=== PATIENT | female | born 2000 | race Hispanic/Latino ===

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

== ENCOUNTER 2022-01-13 09:57 | Emergency (ER) | payer OTHER, MEDICAID ==
[~2022-01-13] VITALS: Ht 160 cm; Wt 74.4 kg
[2022-01-13] MEDS ORDERED: ACETAMINOPHEN 500 MG TABLET PO SCH (10:30)
[2022-01-13] MEDS ORDERED: TETANUS/DIPHTHERIA TOXOID [ADULT] 0.5 ML VIAL IM SCH (10:30)
[2022-01-13] MEDS ORDERED: CEPH500B PO (12:23)
[2022-01-13 12:47] VITALS: BP 127/85
[2022-01-13] MEDS ORDERED: BACITRACIN 28.4 GM OINT TP ONE (13:00)
== END 2022-01-13 12:48 | disposition home or self-care (01) ==
LOC: EDH 09:57
DX: S81.851A Open bite, right lower leg, initial encounter (principal); W54.0XXA Bitten by dog, initial encounter; Y93.89 Activity, other specified; Y92.89 Other specified places as the place of occurrence of the external cause; Y99.8 Other external cause status
CPT/HCPCS: 73590; 81025; 90471; 90714

== ENCOUNTER 2024-07-23 11:10 | Observation (INO) | payer MEDICAID, OTHER ==
[~2024-07-23] VITALS: Ht 160 cm; Wt 82.1 kg
[~2024-07-23 11:10] MED LIST changes: +CEPH500B PO
[2024-07-23 11:20] VITALS: BP 120/67; PULSE 95; RESP 18
[2024-07-23 12:01] LABS: APPEARANCE,URINE CLEAR (CLEAR); BILIRUBIN,URINE NEGATIVE (NEGATIVE); COLOR,URINE LIGHT-YELLOW (YELLOW); GLUCOSE, URINE (UA) NEGATIVE (NEGATIVE); KETONES,URINE NEGATIVE (NEGATIVE); LEUKOCYTE ESTERASE ,URINE 75 Leu/uL (NEGATIVE); NITRATE,URINE NEGATIVE (NEGATIVE); OCCULT BLOOD,URINE NEGATIVE (NEGATIVE); PH,URINE 6.5 (5.0-8.0); PROTEIN,URINE NEGATIVE (NEGATIVE); UROBILINOGEN,URINE 0.2 mg/dL (0.2-1.0)
[2024-07-23 12:09] LABS: AMPHET/METH SCREEN,URINE NEGATIVE (NEGATIVE); BARBITURATE SCREEN, URINE NEGATIVE (NEGATIVE); BENZODIAZEPINES SCREEN,URINE NEGATIVE (NEGATIVE); CANNABINOID SCREEN,URINE NEGATIVE (NEGATIVE); COCAINE SCREEN,URINE NEGATIVE (NEGATIVE); OPIATE SCREEN,URINE NEGATIVE (NEGATIVE); PHENCYCLIDINE SCREEN,URINE NEGATIVE (NEGATIVE)
[2024-07-23 12:13] LABS: ADD UA MICROSCOPIC YES
[2024-07-23 12:24] LABS: BACTERIA,URINE RARE /HPF (None Seen); MUCUS,URINE RARE LPF (None Seen); RBC,URINE 0-1 /HPF (0-1); SQUAMOUS EPITHELIAL CELL,UR FEW /HPF (0-2)
[2024-07-23] MEDS: AZITHROMYCIN 250 MG TABLET PO ONE (12:46)
== END 2024-07-23 12:55 | disposition home or self-care (01) ==
LOC: EDH 11:10 → LDH 12:09
PROVIDERS: ADMIT Obstetrics & Gynecology; ATTEND Obstetrics & Gynecology
DX: O36.8130 Decreased fetal movements, third trimester, not applicable or unspecified (principal); Z3A.37 37 weeks gestation of pregnancy; Z79.899 Other long term (current) drug therapy
CPT/HCPCS: 76819; 80305; 87086; 81001; G0379; G0378

== ENCOUNTER 2024-08-03 17:09 | Inpatient (IN) | payer MEDICAID ==
[~2024-08-03] VITALS: Ht 160 cm; Wt 81.6 kg
[2024-08-03] MEDS ORDERED: LACTATED RINGERS 500 ML 500 ML IV PRN (17:30)
[2024-08-03] MEDS ORDERED: NALoxone HCL 0.4 MG/1 ML ML IV PRN (17:30)
[2024-08-03] MEDS ORDERED: MEPERIDINE-PF 25 MG/ML SYG IVP PRN (17:30)
[2024-08-03] MEDS ORDERED: ePHEDrine SULFate 50 MG/ML AMPULE IVP PRN (17:30)
[2024-08-03] MEDS ORDERED: PROMETHAZINE HCL 25 MG/ML 1ML AMPULE IM PRN (17:30)
[2024-08-03] MEDS: LACTATED RINGERS 1000ML 1,000 ML IV PRN (17:55)
[2024-08-03 18:00] LABS: HEMATOCRIT 34.3 % (36-48); MEAN CORPUSCULAR HEMOGLOBIN 24.9 pg (27.0-33.0); MEAN CORPUSCULAR HGB CONC 32.4 g/dL (32.0-36.0); MEAN CORPUSCULAR VOLUME 77.1 fL (79-99); PLATELET COUNT (AUTO) 221 K/uL (130-400); RED BLOOD CELL COUNT(AUTO) 4.45 MIL/uL (4.00-5.50); RED CELL DISTRIBUTION WIDTH 13.7 % (11.0-15.5)
[2024-08-03 18:22] LABS: APPEARANCE,URINE CLOUDY (CLEAR); BILIRUBIN,URINE NEGATIVE (NEGATIVE); COLOR,URINE YELLOW (YELLOW); GLUCOSE, URINE (UA) NEGATIVE (NEGATIVE); KETONES,URINE 20 mg/dL (NEGATIVE); LEUKOCYTE ESTERASE ,URINE 75 Leu/uL (NEGATIVE); NITRATE,URINE NEGATIVE (NEGATIVE); OCCULT BLOOD,URINE NEGATIVE (NEGATIVE); PH,URINE 6.5 (5.0-8.0); PROTEIN,URINE NEGATIVE (NEGATIVE); UROBILINOGEN,URINE 0.2 mg/dL (0.2-1.0)
[2024-08-03 18:27] LABS: ADD UA MICROSCOPIC YES
[2024-08-03 18:31] LABS: BACTERIA,URINE RARE /HPF (None Seen); MUCUS,URINE RARE LPF (None Seen); RBC,URINE 0-1 /HPF (0-1); SQUAMOUS EPITHELIAL CELL,UR MOD /HPF (0-2)
[2024-08-03] MEDS: AMPICILLIN 2GM+NS 100ML 100 ML IV SCH (18:36)
[2024-08-03] MEDS: DINOPROSTONE 10 MG VAGINAL SUPP VG ONE (18:36)
[2024-08-03] MEDS: AMPICILLIN 1GM+NS 50ML 50 ML IV SCH (22:38)
[2024-08-04] MEDS ORDERED: MISOPROSTOL 200 MCG TABLET ONE (01:38)
[2024-08-04] MEDS ORDERED: DIPH,PERTUSS(ACELL),TET VAC/PF 0.5 ML VIAL IM PRN (02:30)
[2024-08-04] MEDS ORDERED: LANOLIN 30GM OINTMENT TP PRN (02:30)
[2024-08-04] MEDS ORDERED: MEASLES/MUMPS/RUBELLA VACCINE, LIVE 0.5 ML/VIAL SQ PRN (02:30)
[2024-08-04] MEDS ORDERED: acetaMINOPHEN WITH coDEINE 1 TAB TAB PO PRN (02:30)
[2024-08-04] MEDS ORDERED: acetaMINOPHEN 325 MG TAB PO PRN (02:30)
[2024-08-04] MEDS: LIDOCAINE HCL 1% 20 ML VIAL ONE (04:02)
[2024-08-04 04:35] VITALS: BP 126/74; PULSE 96; RESP 18; TEMP 98.6
[2024-08-04 07:45] VITALS: BP 100/58; PULSE 101; RESP 18; TEMP 98.2
[2024-08-04] MEDS: doCUSate SODIUM 100 MG CAP PO SCH (08:09)
[2024-08-04] MEDS: ibuPROFEN 600 MG TABLET PO PRN (08:10)
[2024-08-04] MEDS: BENZOCAINE/LANOLIN/ALOE VERA 60 ML AEROSOL TP PRN (08:11)
[2024-08-04] MEDS: WITCH HAZEL 1 PAD TP PRN (08:11)
[2024-08-04 11:30] VITALS: BP 104/46; PULSE 87; RESP 18; TEMP 98.2
[2024-08-04] MEDS: AZITHROMYCIN 250 MG TABLET PO ONE (11:59)
[2024-08-04 16:00] VITALS: BP 120/88; PULSE 79; RESP 18; TEMP 98.2
[2024-08-04 19:10] VITALS: BP 105/71; PULSE 81; RESP 20; TEMP 98
[2024-08-04 23:12] VITALS: BP 98/68; PULSE 75; RESP 20; TEMP 98.1
[2024-08-05 03:52] VITALS: BP 110/71; PULSE 81; RESP 20; TEMP 98.1
[2024-08-05 06:50] LABS: HEMATOCRIT 29.9 % (36-48); MEAN CORPUSCULAR HEMOGLOBIN 24.8 pg (27.0-33.0); MEAN CORPUSCULAR HGB CONC 32.1 g/dL (32.0-36.0); MEAN CORPUSCULAR VOLUME 77.3 fL (79-99); RED BLOOD CELL COUNT(AUTO) 3.87 MIL/uL (4.00-5.50); RED CELL DISTRIBUTION WIDTH 14.1 % (11.0-15.5); WHITE BLOOD COUNT (AUTO) 11.1 K/uL (4.8-10.8)
[2024-08-05 07:30] VITALS: BP 113/75; PULSE 89; RESP 16; TEMP 97.7
[2024-08-05 12:00] VITALS: BP 108/67; PULSE 87; RESP 18; TEMP 98
== END 2024-08-05 13:53 | disposition home or self-care (01) | DRG 560 ==
LOC: LDH 17:20 → WSH 08-04 04:35
PROVIDERS: ADMIT Obstetrics & Gynecology; ATTEND Obstetrics & Gynecology
PROC: 10E0XZZ Delivery of Products of Conception, External Approach (ICD-10-PCS; principal; 2024-08-04)
PROC: 0HQ9XZZ Repair Perineum Skin, External Approach (ICD-10-PCS; 2024-08-04)
PROC: 3E0P7VZ Introduction of Hormone into Female Reproductive, Via Natural or Artificial Opening (ICD-10-PCS; 2024-08-04)
PROC: 3E0R3BZ Introduction of Anesthetic Agent into Spinal Canal, Percutaneous Approach (ICD-10-PCS; 2024-08-04)
PROC: 00HU33Z Insertion of Infusion Device into Spinal Canal, Percutaneous Approach (ICD-10-PCS; 2024-08-04)
DX: O77.0 Labor and delivery complicated by meconium in amniotic fluid (principal); Z37.0 Single live birth; O70.0 First degree perineal laceration during delivery; O99.824 Streptococcus B carrier state complicating childbirth; Z3A.39 39 weeks gestation of pregnancy
CPT/HCPCS: 36415; 81001; 85027; 86592; 86850; 86870; 86900; 86901; 86922; 87086; 87340; A4314; G0378; J0290; J2795

== ENCOUNTER 2025-09-01 12:46 | Emergency (ER) | payer BC, MEDICAID ==
[~2025-09-01] VITALS: Ht 160 cm; Wt 81.6 kg
[~2025-09-01 12:46] MED LIST changes: -CEPH500B PO
--- NOTE | 2025-09-01 12:53 | ERN ---
ED Note History of Present Illness Stated Complaint: VAGINAL BLEED Chief Complaint: Vaginal Problems/Bleeding Time Seen by MD: 12:51 Dictation: PATIENT IS A 25-YEAR-OLD FEMALE HERE WITH COMPLAINTS OF HEAVY VAGINAL BLEEDING OFF AND ON FOR THE LAST SEVERAL DAYS. SHE STATES HIS OUTSIDE OF HER MENSES. SAID SHE MIGHT BE . SHE IS A PATIENT OF DR. NIKUNJ Hannah, HAS NOT SEEN HER IN A WHILE. Allergies: Coded Allergies: No Known Drug Allergies (Unverified Allergy, Unknown, 05/19/20) NO KNOWN DRUG ALLERGIES Home Meds Reported Medications Pnv No.81/Iron Cbn&Gluc/FA/Dss (Citranatal Rx Tablet) 1 Each Tablet, 1 EACH PO [id number], TAB 05/20/20 Past Medical History Past Medical History: No Pertinent History Surgical History: None Surgical History Other: RT FOOT SX : 2 Para: 1 Aborts: 0 RN Note Reviewed/Agreed w/PFSH: Yes Review of System Dictation CONSTITUTIONAL: NEGATIVE EXCEPT FOR HPI HEAD/FACE: NEGATIVE EXCEPT FOR HPI EENT: NEGATIVE EXCEPT FOR HPI RESPIRATORY: NEGATIVE EXCEPT FOR HPI GASTROINTESTINAL/ABDOMINAL: NEGATIVE EXCEPT FOR HPI GENITOURINARY: NEGATIVE EXCEPT FOR HPI HEAVY VAGINAL BLEEDING MUSCULOSKELETAL: NEGATIVE EXCEPT FOR HPI INTEGUMENTARY: NEGATIVE EXCEPT FOR HPI NEUROLOGICAL/PSYCH: NEGATIVE EXCEPT FOR HPI HEMATOLOGIC/LYMPHATIC: NEGATIVE EXCEPT FOR HPI ALL SYSTEMS NEGATIVE, EXCEPT NOTED ABOVE. 13 POINT REVIEW OF SYSTEMS ASSESSED AND ALL NEGATIVE EXCEPT FOR ABOVE. Initial Vital Sign VS Vital Signs Date Time Temp Pulse Resp B/P (MAP) Pulse Ox O2 Delivery O2 Flow Rate FiO2 09/01/25 12:49 98.1 115 18 130/85 97 Room Air 0 09/01/25 14:16 21 Physical Exam Dictation VITAL SIGNS REVIEWED GENERAL APPEARANCE: ALERT, ORIENTED X 3, NO ACUTE DISTRESS, WELL DEVELOPED, NOURISHED. HEAD AND FACE: NON-TRAUMATIC. EYES: PERRL, PINK CONJUNCTIVAS, EYELID NO TRAUMA, ANTERIOR CHAMBER WITH ARCUS SENILIS. EARS: PINNAS INTACT AND NO SIGNS OF TRAUMA OR ERYTHEMA EAR CANALS CLEAR AND NO DISCHARGE TM NO ERYTHEMA NOSE: NO DISCHARGE, NO BLEEDING. OROPHARYNX: MOUTH NORMAL, TONGUE PINK, PHARYNX CLEAR,NO ERYTHEMA, TONSILS NO EXUDATES, NO ABSCESSES NOTED, MUCOUS MEMBRANE MOIST NECK: SUPPLE, NON-TENDER, NO THYROMEGALY, NO MASSES, NO JVD, NO BRUITS BREAST:DEFERRED CHEST:NO TENDERNESS, NO CREPITUS, NO PARADOXICAL MOVEMENT, NO RETRACTIONS LUNGS:CLEAR, WELL-VENTILATED, SYMMETRIC, NO RALES, NO WHEEZING, NO RHONCHI, NO STRIDOR, GOOD BREATH SOUNDS BILATERALLY HEART: REGULAR RATE, REGULAR RHYTHM, NO MURMUR, NO GALLOPS VASCULAR: NO PERIPHERAL EDEMA, ABDOMEN: SOFT, POSITIVE BOWEL SOUNDS, NONDISTENDED, NO GUARDING, NONTENDER, NO REBOUND, NO MASSES NO HEPATOMEGALY, NO SPLENOMEGALY, NO ZULETA'S SIGN, NO HERNIAS. RECTAL: DEFERRED GENITAL: DEFERRED NEUROLOGICAL: NORMAL SPEECH, MOTOR FUNCTION INTACT, SENSORY FUNCTION INTACT MUSCULOSKELETAL: NECK NONTENDER, FULL RANGE OF MOTION, BACK NONTENDER, FULL RANGE OF MOTION, EXTREMITIES: NONTENDER, FULL RANGE OF MOTION SKIN: COLOR PINK, DRY, NO TURGOR, NO RASH, NO LACERATIONS, NO ABRASIONS, NO CONTUSIONS. LYMPHATIC: DEFERRED Results (Laboratory/Radiology) Laboratory/Radiology Laboratory Tests Test 09/01/25 13:12 White Blood Count 6.8 K/uL (4.8-10.8) Red Blood Count 4.80 MIL/uL (4.00-5.50) Hemoglobin 13.3 g/dL (12.0-16.0) Hematocrit 39.0 % (36-48) Mean Corpuscular Volume 81.3 fL (79-99) Mean Corpuscular Hemoglobin 27.7 pg (27.0-33.0) Mean Corpuscular Hemoglobin Concent 34.1 g/dL (32.0-36.0) Red Cell Distribution Width 12.9 % (11.0-15.5) Platelet Count 230 K/uL (130-400) Mean Platelet Volume 10.6 fL (7.5-10.5) H Immature Granulocyte % (Auto) 0.1 % (0-1) Neutrophils (%) (Auto) 70.0 % (40.0-77.0) Lymphocytes (%) (Auto) 21.7 % (21.0-51.0) Monocytes (%) (Auto) 7.5 % (3.0-13.0) Eosinophils (%) (Auto) 0.4 % (0.0-8.0) Basophils (%) (Auto) 0.3 % (0.0-5.0) Neutrophils # (Auto) 4.7 K/uL (1.8-7.7) Lymphocytes # (Auto) 1.5 K/uL (1.0-4.8) Monocytes # (Auto) 0.5 K/uL (0.1-1.0) Eosinophils # (Auto) 0.03 K/uL (0.00-0.70) Basophils # (Auto) 0.02 K/uL (0.00-0.20) Absolute Immature Granulocyte (auto 0.01 K/uL (0-1) Nucleated Red Blood Cells 0.0 % (0.0-0.19) Sodium Level 140 mmol/L (136-145) Potassium Level 3.4 mmol/L (3.5-5.1) L Chloride Level 104 mmol/L (101-111) Carbon Dioxide Level 22 mmol/L (21-32) Blood Urea Nitrogen 8 mg/dL (7-18) Creatinine 0.6 mg/dL (0.5-1.0) Glomerular Filtration Rate Calc 128 mL/min (>90) Random Glucose 124 mg/dL (70-105) H Total Calcium 9.0 mg/dL (8.5-10.1) Human Chorionic Gonadotropin, Quant 2035 mIU/mL (0-5) H OB ULTRASOUND DEMONSTRATES NO IUP AT THIS TIME. PATIENT IS FIVE WEEKS THREE DAYS Labs Reviewed?: Yes ED Course ED Course Orders Procedure Category Date Status Time Cbc With Differential LAB 09/01/25 Complete 12:51 Hcg,Quantitative LAB 09/01/25 Complete 12:51 Type And Screen BBK 09/01/25 Complete 12:51 Basic Metabolic Panel LAB 09/01/25 Complete 12:51 Us Ob <14 Weeks US 09/01/25 Taken 14:16 Vital Signs Date Time Temp Pulse Resp B/P (MAP) Pulse Ox O2 Delivery O2 Flow Rate FiO2 09/01/25 14:16 97.9 110 18 106/79 98 Room Air* 0 21 09/01/25 12:49 98.1 115 18 130/85 97 Room Air 0 1435, PATIENT HAS A QUANT GREATER THAN 2000. WE WILL PERFORM ULTRASOUND LESS THAN 14 WEEKS WE WILL EVALUATE [id number]/ 1530/PATIENT WILL BE DISCHARGED WITH BLEEDING IN EARLY . OB ULTRASOUND DOES NOT SHOW AN IUP AT THIS TIME. HOWEVER PATIENT IS ONLY FIVE WEEKS GRAVID. SHE WAS MADE AWARE TO CONTINUE VITAMINS [id number], TYLENOL ONLY FOR PAIN, NO ALCOHOL NO TOBACCO AND NO DRUG USE. NO [id number] MEDICATIONS EXCEPT FOR TYLENOL AND FOLLOW UP WITH DR. NIKUNJ Hannah Medical Decision Making MDM MDM: DIFFERENTIAL DIAGNOSIS: ECTOPIC /COMPLETE MISCARRIAGE/INCOMPLETE MISCARRIAGE/BLEEDING IN EARLY /ELECTROLYTE IMBALANCE/DEHYDRATION RATIONALE: TESTS CONSIDERED AND ORDERED SECONDARY TO SHARED DECISION MAKING INCLUDE: ULTRASOUND/LABS PREVIOUS OUTSIDE RECORDS REVIEWED: OLD ER VISITS. RISK OF COMPLICATION AND/OR MORBIDITY OR MORTALITY OF PATIENT MANAGEMENT: NONE MEDICATIONS-PER MEDICATION RECONCILIATION NEED FOR HOSPITALIZATION: PATIENT DOES NOT MEET CRITERIA FOR HOSPITALIZATION. NONE NEED FOR EMERGENCY MAJOR/MINOR SURGERY: NO THERE ARE NO SOCIAL CONCERNS WITH THIS PATIENT. PRESCRIPTION DRUG MANAGEMENT NONE PRESCRIPTIONS WILL INCLUDE SYMPTOMATIC CARE PATIENT'S PRIOR EXTERNAL MEDICAL RECORDS FROM OTHER ER VISITS WERE REVIEWED BY ME INDICATED. PRIOR TESTING AND RESULTS FROM PREVIOUS VISITS WERE REVIEWED. PRIOR TESTS WERE TAKEN INTO ACCOUNT WITH MEDICAL DECISION MAKING AND RESOURCE UTILIZATION, INDEPENDENT HISTORIAN/HISTORIANS WERE USED TO OBTAIN COMPLETE MEDICAL HISTORY. I INDEPENDENTLY INTERPRETED THE TEST THAT WERE PERFORMED, RESULTS WERE REVIEWED BY ME AND CONSIDERED FINDINGS ON RADIOLOGY IF ORDERED. MEDICAL MANAGEMENT AND EXAMINATION INTERPRETATION DISCUSSIONS WERE HAD BY ME WITH OTHER QUALIFIED HEALTHCARE PROFESSIONALS INDICATED FOR THE PATIENT'S CARE. DX & DISP Disposition: Discharge Departure Impression: Primary Impression: Vaginal bleeding affecting early Additional Impressions: Hypokalemia, Hyperglycemia Condition: Stable Additional Instructions: FOLLOW-UP WITH PRIMARY CARE PROVIDER IN 1 TO 2 DAYS. TAKE MEDICATIONS DIRECTED HERE IN THE EMERGENCY ROOM. OKAY TO CONTINUE HOME MEDICATIONS UNLESS OTHERWISE DISCUSSED DURING YOUR VISIT IN THE EMERGENCY ROOM TODAY. RETURN TO YOUR NEAREST EMERGENCY ROOM IF SYMPTOMS WORSEN OR IF THERE IS NO IMPROVEMENT. CALL 911 IF YOU NEED IMMEDIATE ASSISTANCE. TAKE TYLENOL [id number] NEEDED AND IF NO CONTRAINDICATIONS ARE PRESENT. INCREASE ORAL HYDRATION. A WOUND CULTURE OR URINE CULTURE WAS ORDERED HERE IN THE EMERGENCY ROOM DEPARTMENT PLEASE FOLLOW-UP WITH PRIMARY CARE PROVIDER AND ADVISE THEM TO GET REPEAT PORTS FROM OUR FACILITY. IF YOU HAD ANY RADHA WRAP/SPLINTS THAT WERE APPLIED HERE, PLEASE DO NOT REMOVE THEM UNTIL YOU SEE YOUR PRIMARY CARE OR SPECIALTY. TAKE TYLENOL [id number] ONLY FOR FEVER PAIN. BEGIN VITAMINS/[id number] TODAY AND TAKE WITH FOOD DAILY. AVOID ALCOHOL,, TOBACCO, [id number] MEDICATIONS EXCEPT TYLENOL UNTIL CLEARED BY YOUR DOCTOR. PELVIC REST AND NO SEX OF ANY KIND UNTIL CLEARED BY DR. CALVIN , SEE HER IN THE NEXT ONE TWO DAYS FOR FOLLOW UP AND MANAGEMENT Referrals: MARYELLEN CALVIN MD (PCP) Time of Disposition: 15:35 I have reviewed the case, and I agree with, Diagnosis and Plan EJ FISHER NP Sep 01, 2025 12:53
[2025-09-01 13:28] LABS: IMMATURE GRANULOCYTE ABSOLUTE 0.01 K/uL (0-1); NUCLEATED RED BLOOD CELLS 0.0 % (0.0-0.19); PLATELET COUNT (AUTO) 230 K/uL (130-400); RED BLOOD CELL COUNT(AUTO) 4.80 MIL/uL (4.00-5.50); RED CELL DISTRIBUTION WIDTH 12.9 % (11.0-15.5); WHITE BLOOD COUNT (AUTO) 6.8 K/uL (4.8-10.8)
[2025-09-01 13:35] LABS: CREATININE 0.6 mg/dL (0.5-1.0); GLOMERULAR FILTR. RATE CALC 128.0 mL/min (>90); GLUCOSE,RANDOM 124.0 mg/dL (70-105); SODIUM SERUM 140.0 mmol/L (136-145); UREA NITROGEN, BLOOD 8.0 mg/dL (7-18)
[2025-09-01 14:03] LABS: HCG,QUANTITATIVE 2035.0 mIU/mL (0-5)
--- NOTE | 2025-09-01 15:41 | HMCIMG ---
EXAM: US Obstetrical, Complete <14 weeks CLINICAL HISTORY: VAGINAL BLEEDING EARLY . NO CARE TECHNIQUE: Transabdominal imaging of the maternal pelvis and a <14 week gestation with image documentation. COMPARISON: None provided. FINDINGS: UTERUS: The endometrium is thickened, irregular, and heterogeneous, measuring 18 mm. No intrauterine gestational sac or pole. Uterus measures 9.4 x 6.8 x 5.5 cm. No myometrial mass. CERVIX: Closed. Unremarkable. OVARIES: Unremarkable. Right ovary measures 2.8 x 1.6 x 2.9 cm. Left ovary measures 2.3 x 1.7 x 1.7 cm. No mass. FREE FLUID: No free fluid. IMPRESSION: 1. No intrauterine identified at this time. Correlate with patient's beta-hCG. 2. Thickened, irregular, and heterogeneous endometrium measuring 18 mm. /[place]
--- NOTE | 2025-09-01 15:48 | NUR ---
PT AT THE BED
[2025-09-01 16:13] VITALS: BP 120/83; PULSE 115; RESP 12; TEMP 98.6; O2SAT 98
== END 2025-09-01 16:38 | disposition home or self-care (01) ==
LOC: EDH 12:46
DX: O20.9 Hemorrhage in early pregnancy, unspecified (principal); O26.891 Other specified pregnancy related conditions, first trimester; E87.6 Hypokalemia; R73.9 Hyperglycemia, unspecified; Z3A.00 Weeks of gestation of pregnancy not specified
CPT/HCPCS: 36415; 76801; 80048; 84702; 85025; 86850; 86900; 86901; 99284